=== PATIENT | female | born 2005 | race Caucasian/White ===

== ENCOUNTER 2023-08-31 02:45 | Outpatient (CLI) | payer OTHER, SELFPAY | END 2023-08-31 02:46 | disposition home or self-care (01) | PROVIDERS: Visit Provider Internal Medicine | DX: F10.129 Alcohol abuse with intoxication, unspecified (principal); R41.82 Altered mental status, unspecified | CPT/HCPCS: A0425; A0427 ==

== ENCOUNTER 2023-08-31 03:12 | Emergency (ER) | payer OTHER, SELFPAY ==
[2023-08-31] VITALS (11 sets, daily range): BP systolic 78–103; BP diastolic 37–75; PULSE 61–86; RESP 16; O2SAT 98–100
--- NOTE | 2023-08-31 03:15 | ED_ITS ---
HPI - General Adult General Chief complaint: Alcohol/Intoxication Stated complaint: ETOH Time Seen by Provider: 08/31/23 03:16 History of Present Illness HPI narrative: Patient is a 18-year-old woman who was brought in by a EMS tonight after being found intoxicated at [facility]. Patient has had nausea and vomiting but no recent history of trauma. She is not able answer any questions as she is profoundly intoxicated. Related Data Home Medications Medication Instructions Recorded Confirmed Unobtainable 08/31/23 08/31/23 Allergies Allergy/AdvReac Type Severity Reaction Status Date / Time Unable to Assess Allergy Verified 08/31/23 03:18 Review of Systems Status of ROS: Reports: unobtainable due to mental status Exam Narrative: Exam Narrative: EXAM GENERAL: Patient appears significantly intoxicated. EYES: No scleral icterus. LYMPH: No supraclavicular or cervical lymphadenopathy. SKIN: Visible skin seen during exam normal or with benign process only. EXT: No dependent lower extremity pedal edema. HEART: Regular rate and rhythm with no murmurs, rubs, or gallops. LUNGS: Clear to auscultation bilaterally with no crackles or wheezes. ABD: Soft, non tender, non distended. PSYCH: Good eye contact, speech is not pressured. Neurologic patient has a ton did but no signs of recent trauma. Const: Vital Signs, click to edit/add: Vital Signs - 24 hr 08/31/23 03:18 Pulse Rate [Pulse Oximeter] 68 Respiratory Rate 16 Blood Pressure [Ri ght Upper Arm] 103/72 Pulse Oximetry 98 Oxygen Delivery Me thod Room Air Course Course ED Course: Patient seen examined laboratory studies pending. Vital Signs Vital signs: Initial Vital Signs Pulse Rate 68 08/31/23 03:18 Pulse Rhythm Regular 08/31/23 03:18 Pulse Strength 3+ Normal 08/31/23 03:18 Respiratory Rate 16 08/31/23 03:18 Blood Pressure 103/72 08/31/23 03:18 Blood Pressure Mean 82 08/31/23 03:18 Blood Pressure Position Supine 08/31/23 03:18 Pulse Oximetry 98 08/31/23 03:18 Oxygen Delivery Method Room Air 08/31/23 03:18 Vital Signs Pulse Rate 68 08/31/23 03:18 Respiratory Rate 16 08/31/23 03:18 Blood Pressure 103/72 08/31/23 03:18 Pulse Oximetry 98 08/31/23 03:18 Oxygen Delivery Method Room Air 08/31/23 03:18 Pulse Rate 68 08/31/23 03:18 Respiratory Rate 16 08/31/23 03:18 Blood Pressure 103/72 08/31/23 03:18 Pulse Oximetry 98 08/31/23 03:18 Oxygen Delivery Method Room Air 08/31/23 03:18 Medical Decision Making MDM Narrative Medical decision making narrative: Patient is a 18-year-old woman who presents of tongue did and intoxicated. Her labs are reasonable with the exception of her her blood alcohol level 0.29. Patient will be observed for a total of 4-5 hours until she is coherent. She this time is been up asking to go home but I do not believe it is safe. We will wait until morning and reassess likely discharge her back to campus with warnings of excessive alcohol consumption. Lab Data Labs: Lab Results 08/31/23 Range/Units 03:35 WBC 7.32 (4.50-11.00) K/uL RBC 4.09 (4.00-5.20) m/uL Hgb 11.5 L (12.0-16.0) gm/dL Hct 36.0 (33.0-51.0) % MCV 88 (80-100) fL MCH 28 (26-34) pg MCHC 32 (32-36) gm/dL RDW Coeff of Babatunde 12.9 (11.5-15.5) % Plt Count 261 (140-440) K/uL Neut % (Auto) 65.2 (42.0-72.0) % Lymph % (Auto) 29.4 (20-44) % [place] % (Auto) 4.2 (0.0-11.0) % Eos % (Auto) 0.8 (0.0-7.0) % Baso % (Auto) 0.3 (0.0-3.0) % Neut # (Auto) 4.77 (1.7-7.0) K/uL Lymph # (Auto) 2.15 (0.90-2.90) K/uL [place] # (Auto) 0.30 (0.00-0.90) K/UL Eos # (Auto) 0.06 (0.00-0.50) K/uL Baso # (Auto) 0.02 (0.00-0.30) K/uL Abs Immat Gran (auto) 0.01 (0.00-0.30) K/uL Imm/Tot Granulo (auto) 0.1 % Sodium 143 (135-149) mmol/L Potassium 4.0 (3.6-5.1) mmol/L Chloride 113 (96-114) mmol/L Carbon Dioxide 21 (20-32) mmol/L Anion Gap 9 (7-15) mEq/L BUN 10 (5-24) mg/dL Creatinine 0.7 (0.5-1.5) mg/dL Estimated GFR 127 ml/min Glucose 96 (60-115) mg/dL Calcium 8.4 (8.4-10.6) mg/dL Total Bilirubin 0.3 (0.1-1.5) mg/dL AST 19 (12-35) U/L ALT 13 (4-35) U/L Alkaline Phosphatase 57 (40-150) U/L Total Protein 7.8 (6.0-8.3) g/dL Albumin 4.8 (3.3-5.0) g/dL HCG, Qual Negative (Negative) Ethyl Alcohol 0.29 H (0.01-0.03) % Discharge Plan Discharge Clinical Impression: Alcoholic intoxication Patient Disposition: Home, Self-Care Condition: Stable Instructions: Alcohol Intoxication (ED) Activity Level: No Restrictions Discharge Diet: Regular Prescriptions: No Action Unobtainable Follow Up/Referrals: Provider,Not a Local [Primary Care Provider] - Stand Alone Forms: [facility] Info Instructions
[2023-08-31 03:44] LABS: Basophils Absolute Auto 0.02 K/uL (0.00-0.30); Basophils Percent Auto 0.3 % (0.0-3.0); Eosinophils Absolute Auto 0.06 K/uL (0.00-0.50); Eosinophils Percent Auto 0.8 % (0.0-7.0); Hemoglobin* 11.5 gm/dL (12.0-16.0); Immature Granulocytes Abs Auto 0.01 K/uL (0.00-0.30); Immature Granulocytes Pct Auto 0.1 %; Lymphocytes Absolute Auto 2.15 K/uL (0.90-2.90); Lymphocytes Percent Auto 29.4 % (20-44); Mean Corpuscular HGB Conc 32 gm/dL (32-36); Mean Corpuscular Hemoglobin 28 pg (26-34); Mean Corpuscular Volume 88 fL (80-100); Monocytes Percent Auto 4.2 % (0.0-11.0); Neutrophils Absolute Auto 4.77 K/uL (1.7-7.0); Neutrophils Percent Auto 65.2 % (42.0-72.0); Platelet Count* 261 K/uL (140-440); RDW Coefficient of Variation % 12.9 % (11.5-15.5); Red Blood Count 4.09 m/uL (4.00-5.20); White Blood Count* 7.32 K/uL (4.50-11.00)
[2023-08-31 03:45] LABS: Slide Review Reflex No
[2023-08-31 03:56] LABS: Albumin* 4.8 g/dL (3.3-5.0); Chloride* 113 mmol/L (96-114)
[2023-08-31 03:57] LABS: Sodium* 143 mmol/L (135-149)
[2023-08-31 03:59] LABS: Anion Gap 9 mEq/L (7-15); Aspartate Amino Transferase* 19 U/L (12-35); Bilirubin Total* 0.3 mg/dL (0.1-1.5); Blood Urea Nitrogen* 10 mg/dL (5-24); Carbon Dioxide* 21 mmol/L (20-32); Creatinine* 0.7 mg/dL (0.5-1.5); Estimated Glomerular Filt Rate 127 ml/min; Total Protein* 7.8 g/dL (6.0-8.3)
[2023-08-31 04:00] LABS: Alanine Aminotransferase* 13 U/L (4-35); Alkaline Phosphatase* 57 U/L (40-150); Calcium* 8.4 mg/dL (8.4-10.6); Glucose* 96 mg/dL (60-115)
[2023-08-31 04:01] LABS: Ethanol* 0.29 % (0.01-0.03)
[2023-08-31 04:10] LABS: HCG Qualitative Serum* Negative (Negative)
== END 2023-08-31 07:16 | disposition home or self-care (01) ==
PROVIDERS: Emergency Provider Internal Medicine
DX: F10.129 Alcohol abuse with intoxication, unspecified (principal)
CPT/HCPCS: 36415; 80053; 82077; 84703; 85025; 99282; 99283